=== PATIENT | male | born 1965 | race Two or more races ===

== ENCOUNTER 2025-02-21 12:30 | Inpatient (IN) | payer OTHER ==
[~2025-02-21] VITALS: Ht 167.6 cm; Wt 88.5 kg
[2025-02-21 13:57] VITALS: BP 125/84
[2025-03-05] MEDS ORDERED: CEFTRIAXONE SODIUM 2,000 MG VIAL IV ONE (14:15)
[2025-03-05] MEDS ORDERED: BUPIVACAINE HCL 30 ML VIAL IJ ONE (14:15)
[2025-03-05] MEDS ORDERED: METRONIDAZOLE/SODIUM CHLORIDE 500 MG/100 ML PIGGYBACK IV ONE (14:15)
[2025-03-05] MEDS ORDERED: LIDOCAINE HCL 1%/EPINEPHRINE 20ML VIAL IJ ONE (14:15)
[2025-03-05] MEDS ORDERED: 0.9 % SODIUM CHLORIDE 1,000 ML IV SCH (15:30)
[2025-03-05] MEDS ORDERED: OxyCODONE HCL 5 MG TABLET (ROXICODONE) PO PRN (15:30)
[2025-03-05] MEDS ORDERED: MORPHINE SULFATE 4 MG/ML CARTRIDGE IV PRN (15:30)
[2025-03-05] MEDS ORDERED: DEXTROSE 50 % IN WATER 0.5 G/ML DISP.SYRIN IV PRN (15:30)
[2025-03-05] MEDS ORDERED: ONDANSETRON HCL 2 MG/ML VIAL IV PRN (15:30)
[2025-03-05] MEDS ORDERED: SUGAMMADEX SODIUM 200 MG/2 ML VIAL IV ONE (16:30)
[2025-03-05] MEDS ORDERED: HYOSCYAMINE SULFATE 0.125 MG TAB.SUBL SL SCH (17:00)
[2025-03-05] MEDS ORDERED: GABAPENTIN 300 MG CAPSULE PO SCH (17:00)
[2025-03-05] MEDS ORDERED: METRONIDAZOLE/SODIUM CHLORIDE 500 MG/100 ML PIGGYBACK IV SCH (17:00)
[2025-03-05 18:43] LABS: BUN CREA RATIO 7.0 (7.0-25.0); CREATININE SERUM 0.92 mg/dL (0.70-1.30); GFR 84.8; GLUCOSE FASTING 164.0 mg/dL (65-100); OSMOLALITY SERUM 286.0 MOSM/KG (275-295)
[2025-03-05] MEDS ORDERED: ACETAMINOPHEN 500 MG GEL..CAP PO SCH (20:00)
[2025-03-05 20:17] LABS: BASO % 0.3 % (0.1-1.2); EOS # 0.01 (0.04-0.54); EOS % 0.1 % (0.7-7.0); LYMPH # 0.76 (1.18-3.74); LYMPH % 6.7 % (19.3-53.1); MEAN PLATELET VOLUME 10.40 fl (9.4-12.4); MONO # 0.70 (0.24-0.82); MONO % 6.2 % (4.7-12.5); NEUT # 9.76 (1.56-6.13); NEUT % 86.3 % (34.0-71.1); RED CELL DISTRIBUTION WIDTH 12.7 % (11.6-14.4)
[2025-03-05] MEDS ORDERED: CELECOXIB 200 MG CAPSULE PO SCH (21:00)
[2025-03-05] MEDS ORDERED: FAMOTIDINE/PF 20 MG/2 ML VIAL IV PUSH SCH (21:00)
[2025-03-06] VITALS: BP 128/77; O2SAT 96
[2025-03-06 07:24] LABS: BASO % 0.3 % (0.1-1.2); EOS # 0.03 (0.04-0.54); EOS % 0.3 % (0.7-7.0); LYMPH # 1.44 (1.18-3.74); LYMPH % 16.5 % (19.3-53.1); MEAN PLATELET VOLUME 11.20 fl (9.4-12.4); MONO # 0.61 (0.24-0.82); MONO % 7.0 % (4.7-12.5); NEUT # 6.60 (1.56-6.13); NEUT % 75.7 % (34.0-71.1); RED CELL DISTRIBUTION WIDTH 12.7 % (11.6-14.4)
[2025-03-06 07:50] LABS: BUN CREA RATIO 7.0 (7.0-25.0); CREATININE SERUM 0.83 mg/dL (0.70-1.30); GFR 95.49; GLUCOSE FASTING 135.0 mg/dL (65-100); OSMOLALITY SERUM 283.0 MOSM/KG (275-295)
[2025-03-06 08:29] VITALS: BP 113/69; O2SAT 98
[2025-03-06 16:50] VITALS: BP 102/66; O2SAT 96
[2025-03-06] MEDS ORDERED: ENOXAPARIN SODIUM 40 MG/0.4 ML SYRINGE SUBCUTANEO SCH (17:00)
[2025-03-07 02:24] VITALS: BP 138/79; O2SAT 97
[2025-03-07 08:00] VITALS: BP 132/87; O2SAT 97
[2025-03-07] MEDS ORDERED: ENOXAPARIN SODIUM 40 MG/0.4 ML SYRINGE SUBCUTANEO SCH (09:00)
[2025-03-07 16:00] VITALS: BP 136/88; O2SAT 96
[2025-03-08 00:51] VITALS: BP 127/68; O2SAT 98
[2025-03-08 07:30] VITALS: BP 135/89; O2SAT 95
[2025-03-08] MEDS ORDERED: HYOSCYAMINE0.125 M1 SL (10:32)
[2025-03-08] MEDS ORDERED: TRAM1TAB98 PO (10:33)
[2025-03-08] MEDS ORDERED: PEPCID AC20 MG PO (10:33)
== END 2025-03-08 15:07 | disposition home or self-care (01) | DRG 331 ==
LOC: O/R 03-05 09:00 → SURG 03-05 10:00
PROVIDERS: ADMIT Surgery; ATTEND Surgery
PROC: 07BC4ZX Excision of Pelvis Lymphatic, Percutaneous Endoscopic Approach, Diagnostic (ICD-10-PCS; 2025-03-05)
PROC: 0DTF4ZZ Resection of Right Large Intestine, Percutaneous Endoscopic Approach (ICD-10-PCS; principal; 2025-03-05 10:00)
DX: D12.0 Benign neoplasm of cecum (principal); D37.4 Neoplasm of uncertain behavior of colon; R19.4 Change in bowel habit; R59.0 Localized enlarged lymph nodes